=== PATIENT | female | born 1995 | race Caucasian/White ===

== ENCOUNTER 2017-12-08 09:15 | Emergency (ER) | payer SELFPAY ==
[2017-12-08] MEDS: HYDROCODONE/APAP (5/325) TAB PO (12:42)
== END 2017-12-08 13:40 | disposition home or self-care (01) ==
LOC: FTE 09:15
DX: S82.51XA Displaced fracture of medial malleolus of right tibia, initial encounter for closed fracture (principal); S82.831A Other fracture of upper and lower end of right fibula, initial encounter for closed fracture; W10.9XXA Fall (on) (from) unspecified stairs and steps, initial encounter; Y92.9 Unspecified place or not applicable
CPT/HCPCS: 29515; 73610-RT; 99283-25